=== PATIENT | male | born 1975 | race Two or more races ===

== ENCOUNTER → 2017-05-06 | Emergency (ER) | payer OTHER ==
[~2017-05-06] VITALS: Ht 195.6 cm; Wt 132.9 kg
== END | disposition home or self-care (01) ==
LOC: ER 16:44
DX: R30.0 Dysuria (principal); R10.32 Left lower quadrant pain

== ENCOUNTER 2017-07-07 08:48 | Day surgery (SDC) | payer OTHER ==
[~2017-07-07 08:48] MED LIST: VALSARTAN-HCTZ1 EAC3 PO
[2017-07-07] MEDS ORDERED: ULTRACET PO (15:11)
[2017-07-07] MEDS ORDERED: URIN D.S. TABL1 EACH PO (15:12)
== END 2017-07-07 16:50 | disposition home or self-care (01) ==
LOC: CIR.AMB 08:48
DX: N20.1 Calculus of ureter (principal)

== ENCOUNTER 2018-06-03 16:25 | Emergency (ER) | payer OTHER ==
[~2018-06-03] VITALS: Ht 198.1 cm; Wt 130.2 kg
[~2018-06-03 16:25] MED LIST changes: +ULTRACET PO; +URIN D.S. TABL1 EACH PO
== END 2018-06-03 21:11 | disposition home or self-care (01) ==
LOC: ER 16:25
DX: M62.838 Other muscle spasm (principal); R42 Dizziness and giddiness

== ENCOUNTER 2019-07-18 08:56 | Outpatient (CLI) | payer OTHER | END 2019-07-18 09:20 | disposition home or self-care (01) | LOC: NUCLEAR 08:56 | DX: I26.99 Other pulmonary embolism without acute cor pulmonale (principal); I27.82 Chronic pulmonary embolism | CPT/HCPCS: 78580; A9540 ==

== ENCOUNTER 2019-07-18 09:23 | Outpatient (CLI) | payer OTHER | END 2019-07-18 09:25 | disposition home or self-care (01) | LOC: RAD 09:23 | DX: R06.09 Other forms of dyspnea (principal); R06.02 Shortness of breath; J32.0 Chronic maxillary sinusitis ==